=== PATIENT | male | born 1975 | race Caucasian/White ===

== ENCOUNTER 2020-12-18 08:00 | Outpatient (CLI) | payer OTHER | END 2020-12-18 23:59 | disposition home or self-care (01) | LOC: LAB.R 08:00 | PROVIDERS: ATTEND Emergency Medicine | DX: J06.9 Acute upper respiratory infection, unspecified (principal); R07.0 Pain in throat; Z20.822 Contact with and (suspected) exposure to COVID-19 | CPT/HCPCS: 87070 ==